=== PATIENT | female | born 1985 | race Two or more races ===

== ENCOUNTER 2019-07-01 12:50 | Emergency (ER) | payer SELFPAY ==
[~2019-07-01] VITALS: Ht 162.6 cm; Wt 67.1 kg
[~2019-07-01 12:50] MED LIST: FOLIPOW28
[2019-07-01] MEDS ORDERED: SUMAtriptan SUCCINATE 6 MG/0.5 ML VL SC ONE (15:45)
[2019-07-01 16:48] VITALS: BP 125/72
== END 2019-07-01 16:49 | disposition home or self-care (01) ==
LOC: ER 12:50
DX: R51 Headache (principal)
CPT/HCPCS: 70450; 81025; 96372; 99284; J3030